=== PATIENT | female | born 1940 | race Caucasian/White ===

== ENCOUNTER 2022-10-12 13:13 | Inpatient (IN) | payer MEDICARE, OTHER ==
[2022-10-12] MEDS ORDERED: Ondansetron ODT 4 MG TAB SL PRN (15:52)
[2022-10-12] MEDS ORDERED: Bisacodyl 5 MG TAB PO PRN (15:52)
[2022-10-12] MEDS: traMADol HCl 50 MG TAB PO PRN ×2 (17:55→23:52)
[2022-10-12] MEDS: Aspirin Chewable 81 MG TAB PO SCH (21:04)
[2022-10-12] MEDS: Vit A,C & E/Lutein/Minerals Tablet PO SCH (21:04)
[2022-10-12] MEDS: Ferrous Gluconate 324 MG TAB PO SCH (21:04)
[2022-10-12] MEDS: Atorvastatin Calcium 40 MG TAB PO SCH (21:05)
[2022-10-13 05:41] LABS: #Basophils 0.1 thou/uL (0.0-0.2); #Eosinphils 0.1 thou/uL (0.0-0.7); #Lymphocytes 1.7 thou/uL (1.20-3.40); #Monocytes 0.7 thou/uL (0.11-0.59); #Neutrophils 5.4 thou/uL (1.40-6.50); %Basophils 0.8 % (0.0-1.0); %Eosinophils 0.9 % (0.0-10.0); %Monocytes 8.7 % (0.0-10.0); %Neutrophils 68.6 % (42.0-75.0); Hemoglobin 11.4 g/dL (12.0-16.0); Mean Corpuscular HGB CONC 31.9 g/dL (32.0-36.0); Mean Corpuscular Hemoglobin 28.1 pg (27.0-31.0); Mean Corpuscular Volume 87.9 fl (78.0-98.0); Mean Platelet Volume 10.7 fL (7.4-10.4); Platelet Count 141 10x3/uL (130-400); RBC Distribution Width 13.2 % (11.5-14.5); Red Blood Cell (RBC) Count 4.05 mill/uL (4.20-5.40); White Blood Cell (WBC) Count 7.9 10x3/uL (4.8-10.8)
[2022-10-13 06:01] LABS: ALT (SGPT) 12 U/L (8-55); AST (SGOT) 18 U/L (5-34); Albumin 3.3 g/dL (3.4-4.8); Alkaline Phosphatase 98 U/L (40-110); Anion Gap 14 mmol/L (10-20); BUN (Urea Nitrogen) 11 mg/dL (9.8-20.1); Bilirubin, Total 0.5 mg/dL (0.2-1.2); Calc. Creatinine Clearance 99 mL/min (70-130); Calcium 8.9 mg/dL (7.8-10.44); Carbon Dioxide 24 mmol/L (23-31); Chloride 107 mmol/L (98-107); Estimated GFR 85; Globulin 2.3 g/dL (2.4-3.5); Glucose 108 mg/dL (83-110); Potassium 3.6 mmol/L (3.5-5.1); Protein, Total 5.6 g/dL (5.8-8.1); Sodium 141 mmol/L (136-145)
[2022-10-13] MEDS: Aspirin Chewable 81 MG TAB PO SCH ×2 (08:51→20:05)
[2022-10-13] MEDS: Multivitamin W/ Minerals 1 TAB PO SCH (08:51)
[2022-10-13] MEDS: Ferrous Gluconate 324 MG TAB PO SCH ×2 (08:51→20:05)
[2022-10-13] MEDS: Lisinopril 10 MG TAB PO SCH (08:51)
[2022-10-13] MEDS: Vit A,C & E/Lutein/Minerals Tablet PO SCH ×2 (08:52→20:05)
[2022-10-13] MEDS: Hydrochlorothiazide 25 MG TAB PO SCH (08:52)
[2022-10-13] MEDS: traMADol HCl 50 MG TAB PO PRN ×3 (09:03→21:18)
[2022-10-13] MEDS ORDERED: hydrALAZINE 25 MG TAB PO PRN (09:31)
[2022-10-13] MEDS: Atorvastatin Calcium 40 MG TAB PO SCH (20:05)
[2022-10-14] MEDS: traMADol HCl 50 MG TAB PO PRN ×2 (07:31→19:49)
[2022-10-14] MEDS: Acetaminophen 325 MG TAB PO PRN (07:34)
[2022-10-14] MEDS: Multivitamin W/ Minerals 1 TAB PO SCH (07:35)
[2022-10-14] MEDS: Ferrous Gluconate 324 MG TAB PO SCH ×2 (07:35→19:50)
[2022-10-14] MEDS: Aspirin Chewable 81 MG TAB PO SCH ×2 (07:35→19:50)
[2022-10-14] MEDS: Hydrochlorothiazide 25 MG TAB PO SCH (07:35)
[2022-10-14] MEDS: Vit A,C & E/Lutein/Minerals Tablet PO SCH ×2 (07:35→19:50)
[2022-10-14] MEDS: Lisinopril 10 MG TAB PO SCH (07:35)
[2022-10-14] MEDS: Atorvastatin Calcium 40 MG TAB PO SCH (19:50)
[2022-10-15] MEDS: traMADol HCl 50 MG TAB PO PRN ×2 (09:16→18:24)
[2022-10-15] MEDS: Lisinopril 10 MG TAB PO SCH (09:17)
[2022-10-15] MEDS: Vit A,C & E/Lutein/Minerals Tablet PO SCH ×2 (09:17→20:44)
[2022-10-15] MEDS: Ferrous Gluconate 324 MG TAB PO SCH ×2 (09:17→20:44)
[2022-10-15] MEDS: Senokot S 8.6-50 MG TAB PO PRN (09:17)
[2022-10-15] MEDS: Multivitamin W/ Minerals 1 TAB PO SCH (09:17)
[2022-10-15] MEDS: Aspirin Chewable 81 MG TAB PO SCH ×2 (09:18→20:44)
[2022-10-15] MEDS: Hydrochlorothiazide 25 MG TAB PO SCH (09:18)
[2022-10-15] MEDS ORDERED: Lisinopril 10 MG TAB PO SCH (11:30)
[2022-10-15] MEDS: Atorvastatin Calcium 40 MG TAB PO SCH (20:44)
[2022-10-15] MEDS: Ibuprofen 800 MG TAB PO PRN (20:45)
[2022-10-16] MEDS: traMADol HCl 50 MG TAB PO PRN ×4 (00:23→21:15)
[2022-10-16] MEDS: Vit A,C & E/Lutein/Minerals Tablet PO SCH ×2 (09:00→21:15)
[2022-10-16] MEDS: Aspirin Chewable 81 MG TAB PO SCH ×2 (09:00→21:15)
[2022-10-16] MEDS: Ferrous Gluconate 324 MG TAB PO SCH ×2 (09:00→21:15)
[2022-10-16] MEDS: Hydrochlorothiazide 25 MG TAB PO SCH (09:00)
[2022-10-16] MEDS: Multivitamin W/ Minerals 1 TAB PO SCH (09:01)
[2022-10-16] MEDS: Lisinopril 20 MG TAB PO SCH (09:01)
[2022-10-16] MEDS: Ibuprofen 800 MG TAB PO PRN (13:27)
[2022-10-16] MEDS: Atorvastatin Calcium 40 MG TAB PO SCH (21:15)
[2022-10-17] MEDS: traMADol HCl 50 MG TAB PO PRN ×3 (06:22→21:35)
[2022-10-17] MEDS: Aspirin Chewable 81 MG TAB PO SCH ×2 (08:12→21:35)
[2022-10-17] MEDS: Hydrochlorothiazide 25 MG TAB PO SCH (08:13)
[2022-10-17] MEDS: Lisinopril 20 MG TAB PO SCH (08:13)
[2022-10-17] MEDS: Ferrous Gluconate 324 MG TAB PO SCH ×2 (08:13→21:35)
[2022-10-17] MEDS: Multivitamin W/ Minerals 1 TAB PO SCH (08:14)
[2022-10-17] MEDS: Vit A,C & E/Lutein/Minerals Tablet PO SCH ×2 (08:14→21:35)
[2022-10-17] MEDS: Acetaminophen 325 MG TAB PO PRN (11:53)
[2022-10-17] MEDS: Ibuprofen 800 MG TAB PO PRN (17:50)
[2022-10-17] MEDS: Atorvastatin Calcium 40 MG TAB PO SCH (21:35)
[2022-10-18] MEDS: Multivitamin W/ Minerals 1 TAB PO SCH (08:01)
[2022-10-18] MEDS: Vit A,C & E/Lutein/Minerals Tablet PO SCH ×2 (08:01→21:19)
[2022-10-18] MEDS: Ferrous Gluconate 324 MG TAB PO SCH ×2 (08:01→21:19)
[2022-10-18] MEDS: Lisinopril 20 MG TAB PO SCH (08:01)
[2022-10-18] MEDS: Aspirin Chewable 81 MG TAB PO SCH ×2 (08:01→21:18)
[2022-10-18] MEDS: traMADol HCl 50 MG TAB PO PRN ×2 (08:02→15:32)
[2022-10-18] MEDS: Hydrochlorothiazide 25 MG TAB PO SCH (08:03)
[2022-10-18] MEDS: Senokot S 8.6-50 MG TAB PO PRN (09:16)
[2022-10-18] MEDS: Ergocalciferol 1.25 MG(50,000 UNITS) CAP PO SCH (15:32)
[2022-10-18] MEDS ORDERED: Transdermal Patch Removal TOP SCH (21:00)
[2022-10-18] MEDS: Atorvastatin Calcium 40 MG TAB PO SCH (21:18)
[2022-10-18] MEDS: Acetaminophen 325 MG TAB PO PRN (21:18)
[2022-10-19] MEDS: traMADol HCl 50 MG TAB PO PRN ×3 (04:22→23:56)
[2022-10-19 05:27] LABS: #Basophils 0.1 thou/uL (0.0-0.2); #Eosinphils 0.3 thou/uL (0.0-0.7); #Lymphocytes 2.5 thou/uL (1.20-3.40); #Monocytes 0.6 thou/uL (0.11-0.59); #Neutrophils 3.8 thou/uL (1.40-6.50); %Basophils 1.4 % (0.0-1.0); %Lymphocytes 33.8 % (21.0-51.0); %Monocytes 8.5 % (0.0-10.0); %Neutrophils 52.3 % (42.0-75.0); Hemoglobin 12.4 g/dL (12.0-16.0); Mean Corpuscular HGB CONC 32.4 g/dL (32.0-36.0); Mean Corpuscular Hemoglobin 28.1 pg (27.0-31.0); Mean Corpuscular Volume 86.8 fl (78.0-98.0); Mean Platelet Volume 8.1 fL (7.4-10.4); Platelet Count 232 10x3/uL (130-400); RBC Distribution Width 12.9 % (11.5-14.5); White Blood Cell (WBC) Count 7.3 10x3/uL (4.8-10.8)
[2022-10-19 05:46] LABS: Anion Gap 16 mmol/L (10-20); BUN (Urea Nitrogen) 15 mg/dL (9.8-20.1); Calc. Creatinine Clearance 86 mL/min (70-130); Calcium 9.2 mg/dL (7.8-10.44); Carbon Dioxide 29 mmol/L (23-31); Chloride 101 mmol/L (98-107); Estimated GFR 72; Glucose 104 mg/dL (83-110); Potassium 4.2 mmol/L (3.5-5.1); Sodium 142 mmol/L (136-145)
[2022-10-19] MEDS ORDERED: Lidocaine 4% Patch TD SCH (08:00)
[2022-10-19] MEDS: Vit A,C & E/Lutein/Minerals Tablet PO SCH ×2 (08:03→21:09)
[2022-10-19] MEDS: Ibuprofen 800 MG TAB PO PRN ×2 (08:03→21:09)
[2022-10-19] MEDS: Ferrous Gluconate 324 MG TAB PO SCH ×2 (08:03→21:09)
[2022-10-19] MEDS: Aspirin Chewable 81 MG TAB PO SCH ×2 (08:03→21:09)
[2022-10-19] MEDS: Lisinopril 20 MG TAB PO SCH (08:03)
[2022-10-19] MEDS: Multivitamin W/ Minerals 1 TAB PO SCH (08:03)
[2022-10-19] MEDS: Hydrochlorothiazide 25 MG TAB PO SCH (08:06)
[2022-10-19] MEDS: Lidocaine 4% Patch TD SCH (08:06)
[2022-10-19] MEDS ORDERED: Lidocaine 5% Patch TD SCH (09:00)
[2022-10-19] MEDS: Transdermal Patch Removal TOP SCH (21:01)
[2022-10-19] MEDS: Atorvastatin Calcium 40 MG TAB PO SCH (21:09)
[2022-10-20] MEDS: Aspirin Chewable 81 MG TAB PO SCH ×2 (08:52→21:27)
[2022-10-20] MEDS: Ferrous Gluconate 324 MG TAB PO SCH ×2 (08:53→21:28)
[2022-10-20] MEDS: Multivitamin W/ Minerals 1 TAB PO SCH (08:53)
[2022-10-20] MEDS: Vit A,C & E/Lutein/Minerals Tablet PO SCH ×2 (08:53→21:28)
[2022-10-20] MEDS: Lisinopril 20 MG TAB PO SCH (08:54)
[2022-10-20] MEDS: Hydrochlorothiazide 25 MG TAB PO SCH (08:55)
[2022-10-20] MEDS: Lidocaine 4% Patch TD SCH (08:56)
[2022-10-20] MEDS: traMADol HCl 50 MG TAB PO PRN (17:49)
[2022-10-20] MEDS: Atorvastatin Calcium 40 MG TAB PO SCH (21:27)
[2022-10-20] MEDS: Ibuprofen 800 MG TAB PO PRN (21:28)
[2022-10-20] MEDS: Transdermal Patch Removal TOP SCH (21:29)
[2022-10-21] MEDS: Multivitamin W/ Minerals 1 TAB PO SCH (07:50)
[2022-10-21] MEDS: Ferrous Gluconate 324 MG TAB PO SCH ×2 (07:50→21:14)
[2022-10-21] MEDS: traMADol HCl 50 MG TAB PO PRN ×2 (07:51→16:35)
[2022-10-21] MEDS: Aspirin Chewable 81 MG TAB PO SCH ×2 (07:52→21:11)
[2022-10-21] MEDS: Lisinopril 20 MG TAB PO SCH (07:52)
[2022-10-21] MEDS: Vit A,C & E/Lutein/Minerals Tablet PO SCH ×2 (07:53→21:11)
[2022-10-21] MEDS: Hydrochlorothiazide 25 MG TAB PO SCH (07:53)
[2022-10-21] MEDS: Lidocaine 4% Patch TD SCH (07:53)
[2022-10-21] MEDS: Acetaminophen 325 MG TAB PO PRN (11:18)
[2022-10-21] MEDS: Ibuprofen 800 MG TAB PO PRN (21:12)
[2022-10-21] MEDS: Atorvastatin Calcium 40 MG TAB PO SCH (21:14)
[2022-10-21] MEDS: Transdermal Patch Removal TOP SCH (21:20)
[2022-10-22] MEDS: traMADol HCl 50 MG TAB PO PRN ×3 (00:17→21:31)
[2022-10-22 06:02] LABS: #Basophils 0.1 thou/uL (0.0-0.2); #Eosinphils 0.4 thou/uL (0.0-0.7); #Lymphocytes 2.8 thou/uL (1.20-3.40); #Monocytes 0.7 thou/uL (0.11-0.59); #Neutrophils 3.6 thou/uL (1.40-6.50); %Basophils 1.5 % (0.0-1.0); %Eosinophils 5.1 % (0.0-10.0); %Lymphocytes 36.8 % (21.0-51.0); %Monocytes 8.6 % (0.0-10.0); Hemoglobin 12.3 g/dL (12.0-16.0); Mean Corpuscular HGB CONC 31.6 g/dL (32.0-36.0); Mean Corpuscular Hemoglobin 27.5 pg (27.0-31.0); Mean Corpuscular Volume 87.2 fl (78.0-98.0); Mean Platelet Volume 8.4 fL (7.4-10.4); Platelet Count 250 10x3/uL (130-400); RBC Distribution Width 13.1 % (11.5-14.5); Red Blood Cell (RBC) Count 4.46 mill/uL (4.20-5.40); White Blood Cell (WBC) Count 7.5 10x3/uL (4.8-10.8)
[2022-10-22 06:21] LABS: Anion Gap 14 mmol/L (10-20); BUN (Urea Nitrogen) 22 mg/dL (9.8-20.1); Calc. Creatinine Clearance 79 mL/min (70-130); Calcium 8.9 mg/dL (7.8-10.44); Carbon Dioxide 25 mmol/L (23-31); Chloride 103 mmol/L (98-107); Estimated GFR 70; Glucose 102 mg/dL (83-110); Potassium 4.2 mmol/L (3.5-5.1); Sodium 138 mmol/L (136-145)
[2022-10-22] MEDS: Vit A,C & E/Lutein/Minerals Tablet PO SCH ×2 (08:04→21:30)
[2022-10-22] MEDS: Ferrous Gluconate 324 MG TAB PO SCH ×2 (08:04→21:30)
[2022-10-22] MEDS: Multivitamin W/ Minerals 1 TAB PO SCH (08:04)
[2022-10-22] MEDS: Aspirin Chewable 81 MG TAB PO SCH ×2 (08:04→21:30)
[2022-10-22] MEDS: Lisinopril 20 MG TAB PO SCH (08:04)
[2022-10-22] MEDS: Hydrochlorothiazide 25 MG TAB PO SCH (08:06)
[2022-10-22] MEDS: Lidocaine 4% Patch TD SCH (08:06)
[2022-10-22] MEDS ORDERED: Ibuprofen 200 MG TAB PO PRN (10:45)
[2022-10-22] MEDS: Transdermal Patch Removal TOP SCH (21:27)
[2022-10-22] MEDS: Atorvastatin Calcium 40 MG TAB PO SCH (21:31)
[2022-10-23] MEDS: traMADol HCl 50 MG TAB PO PRN ×3 (05:55→18:16)
[2022-10-23] MEDS: Vit A,C & E/Lutein/Minerals Tablet PO SCH ×2 (07:46→21:02)
[2022-10-23] MEDS: Lidocaine 4% Patch TD SCH (07:46)
[2022-10-23] MEDS: Multivitamin W/ Minerals 1 TAB PO SCH (07:47)
[2022-10-23] MEDS: Ferrous Gluconate 324 MG TAB PO SCH ×2 (07:47→21:02)
[2022-10-23] MEDS: Aspirin Chewable 81 MG TAB PO SCH ×2 (07:47→21:02)
[2022-10-23] MEDS: Acetaminophen 325 MG TAB PO PRN (07:47)
[2022-10-23] MEDS: Lisinopril 20 MG TAB PO SCH (07:48)
[2022-10-23] MEDS: Hydrochlorothiazide 25 MG TAB PO SCH (07:49)
[2022-10-23] MEDS: Transdermal Patch Removal TOP SCH (21:00)
[2022-10-23] MEDS: Atorvastatin Calcium 40 MG TAB PO SCH (21:02)
[2022-10-23] MEDS: Ibuprofen 200 MG TAB PO PRN (21:03)
[2022-10-24] MEDS: Ferrous Gluconate 324 MG TAB PO SCH ×2 (09:06→21:14)
[2022-10-24] MEDS: Lidocaine 4% Patch TD SCH (09:07)
[2022-10-24] MEDS: Aspirin Chewable 81 MG TAB PO SCH ×2 (09:07→21:15)
[2022-10-24] MEDS: Lisinopril 20 MG TAB PO SCH (09:07)
[2022-10-24] MEDS: Hydrochlorothiazide 25 MG TAB PO SCH (09:07)
[2022-10-24] MEDS: Vit A,C & E/Lutein/Minerals Tablet PO SCH ×2 (09:08→21:15)
[2022-10-24] MEDS: Multivitamin W/ Minerals 1 TAB PO SCH (09:08)
[2022-10-24] MEDS: traMADol HCl 50 MG TAB PO PRN ×2 (09:14→18:14)
[2022-10-24] MEDS: Atorvastatin Calcium 40 MG TAB PO SCH (21:14)
[2022-10-24] MEDS: Transdermal Patch Removal TOP SCH (21:14)
[2022-10-24] MEDS: Ibuprofen 200 MG TAB PO PRN (21:20)
[2022-10-25] MEDS: Lidocaine 4% Patch TD SCH (07:59)
[2022-10-25] MEDS: Ferrous Gluconate 324 MG TAB PO SCH ×2 (08:05→20:17)
[2022-10-25] MEDS: Multivitamin W/ Minerals 1 TAB PO SCH (08:05)
[2022-10-25] MEDS: traMADol HCl 50 MG TAB PO PRN ×2 (08:06→20:15)
[2022-10-25] MEDS: Aspirin Chewable 81 MG TAB PO SCH ×2 (08:08→20:15)
[2022-10-25] MEDS: Lisinopril 20 MG TAB PO SCH (08:08)
[2022-10-25] MEDS: Hydrochlorothiazide 25 MG TAB PO SCH (08:09)
[2022-10-25] MEDS: Vit A,C & E/Lutein/Minerals Tablet PO SCH ×2 (08:10→20:15)
[2022-10-25] MEDS: Ergocalciferol 1.25 MG(50,000 UNITS) CAP PO SCH (16:40)
[2022-10-25] MEDS: Acetaminophen 325 MG TAB PO PRN (16:50)
[2022-10-25] MEDS: Atorvastatin Calcium 40 MG TAB PO SCH (20:15)
[2022-10-25] MEDS: Transdermal Patch Removal TOP SCH (20:17)
[2022-10-26] MEDS: Ibuprofen 200 MG TAB PO PRN ×2 (05:25→22:13)
[2022-10-26] MEDS: Lidocaine 4% Patch TD SCH (08:10)
[2022-10-26] MEDS: Multivitamin W/ Minerals 1 TAB PO SCH (08:11)
[2022-10-26] MEDS: Aspirin Chewable 81 MG TAB PO SCH ×2 (08:11→20:21)
[2022-10-26] MEDS: Hydrochlorothiazide 25 MG TAB PO SCH (08:11)
[2022-10-26] MEDS: Vit A,C & E/Lutein/Minerals Tablet PO SCH ×2 (08:12→20:21)
[2022-10-26] MEDS: Lisinopril 20 MG TAB PO SCH (08:13)
[2022-10-26] MEDS: Ferrous Gluconate 324 MG TAB PO SCH ×2 (08:13→20:21)
[2022-10-26] MEDS: Acetaminophen 325 MG TAB PO PRN (08:19)
[2022-10-26] MEDS: traMADol HCl 50 MG TAB PO PRN (20:21)
[2022-10-26] MEDS: Atorvastatin Calcium 40 MG TAB PO SCH (20:21)
[2022-10-26] MEDS: Transdermal Patch Removal TOP SCH (20:30)
[2022-10-27 05:23] LABS: #Basophils 0.1 thou/uL (0.0-0.2); #Eosinphils 0.3 thou/uL (0.0-0.7); #Monocytes 0.6 thou/uL (0.11-0.59); #Neutrophils 3.1 thou/uL (1.40-6.50); %Basophils 1.8 % (0.0-1.0); %Eosinophils 4.6 % (0.0-10.0); %Lymphocytes 42.5 % (21.0-51.0); %Monocytes 8.6 % (0.0-10.0); %Neutrophils 42.7 % (42.0-75.0); Hemoglobin 12.6 g/dL (12.0-16.0); Mean Corpuscular HGB CONC 32.5 g/dL (32.0-36.0); Mean Corpuscular Hemoglobin 27.6 pg (27.0-31.0); Mean Corpuscular Volume 85.1 fl (78.0-98.0); Mean Platelet Volume 9.7 fL (7.4-10.4); Platelet Count 243 10x3/uL (130-400); Red Blood Cell (RBC) Count 4.56 mill/uL (4.20-5.40); White Blood Cell (WBC) Count 7.2 10x3/uL (4.8-10.8)
[2022-10-27 05:39] LABS: Anion Gap 13 mmol/L (10-20); BUN (Urea Nitrogen) 25 mg/dL (9.8-20.1); Calc. Creatinine Clearance 77 mL/min (70-130); Calcium 9.1 mg/dL (7.8-10.44); Carbon Dioxide 27 mmol/L (23-31); Chloride 104 mmol/L (98-107); Estimated GFR 68; Glucose 104 mg/dL (83-110); Potassium 4.1 mmol/L (3.5-5.1); Sodium 140 mmol/L (136-145)
[2022-10-27 05:51] VITALS: BMI 35.7
[2022-10-27] MEDS: Lidocaine 4% Patch TD SCH (09:08)
[2022-10-27] MEDS: Hydrochlorothiazide 25 MG TAB PO SCH (09:08)
[2022-10-27] MEDS: Aspirin Chewable 81 MG TAB PO SCH ×2 (09:08→20:28)
[2022-10-27] MEDS: Multivitamin W/ Minerals 1 TAB PO SCH (09:09)
[2022-10-27] MEDS: Ferrous Gluconate 324 MG TAB PO SCH ×2 (09:10→20:28)
[2022-10-27] MEDS: Lisinopril 20 MG TAB PO SCH (09:10)
[2022-10-27] MEDS: Vit A,C & E/Lutein/Minerals Tablet PO SCH ×2 (09:11→20:28)
[2022-10-27] MEDS: Ibuprofen 200 MG TAB PO PRN (20:27)
[2022-10-27] MEDS: Transdermal Patch Removal TOP SCH (20:28)
[2022-10-27] MEDS: Atorvastatin Calcium 40 MG TAB PO SCH (20:28)
[2022-10-28] MEDS: Vit A,C & E/Lutein/Minerals Tablet PO SCH ×2 (08:09→20:44)
[2022-10-28] MEDS: Ferrous Gluconate 324 MG TAB PO SCH ×2 (08:09→20:44)
[2022-10-28] MEDS: Multivitamin W/ Minerals 1 TAB PO SCH (08:09)
[2022-10-28] MEDS: Lidocaine 4% Patch TD SCH (08:09)
[2022-10-28] MEDS: Hydrochlorothiazide 25 MG TAB PO SCH (08:10)
[2022-10-28] MEDS: Lisinopril 20 MG TAB PO SCH (08:10)
[2022-10-28] MEDS: Aspirin Chewable 81 MG TAB PO SCH ×2 (08:10→20:44)
[2022-10-28] MEDS: traMADol HCl 50 MG TAB PO PRN (08:19)
[2022-10-28] MEDS: Ibuprofen 200 MG TAB PO PRN ×2 (10:10→18:32)
[2022-10-28] MEDS: Transdermal Patch Removal TOP SCH (20:44)
[2022-10-28] MEDS: Atorvastatin Calcium 40 MG TAB PO SCH (20:45)
[2022-10-28] MEDS: Acetaminophen 325 MG TAB PO PRN (20:45)
[2022-10-29] MEDS: Lidocaine 4% Patch TD SCH (08:09)
[2022-10-29] MEDS: Aspirin Chewable 81 MG TAB PO SCH ×2 (08:10→20:41)
[2022-10-29] MEDS: Ferrous Gluconate 324 MG TAB PO SCH ×2 (08:10→20:41)
[2022-10-29] MEDS: Ibuprofen 200 MG TAB PO PRN ×3 (08:10→20:43)
[2022-10-29] MEDS: Vit A,C & E/Lutein/Minerals Tablet PO SCH ×2 (08:12→20:41)
[2022-10-29] MEDS: Multivitamin W/ Minerals 1 TAB PO SCH (08:12)
[2022-10-29] MEDS: Hydrochlorothiazide 25 MG TAB PO SCH (08:13)
[2022-10-29] MEDS: Lisinopril 20 MG TAB PO SCH (08:13)
[2022-10-29] MEDS: Transdermal Patch Removal TOP SCH (20:41)
[2022-10-29] MEDS: Atorvastatin Calcium 40 MG TAB PO SCH (20:41)
[2022-10-30] MEDS: Lidocaine 4% Patch TD SCH (07:52)
[2022-10-30] MEDS: Lisinopril 20 MG TAB PO SCH (07:53)
[2022-10-30] MEDS: Vit A,C & E/Lutein/Minerals Tablet PO SCH ×2 (07:54→20:50)
[2022-10-30] MEDS: Ferrous Gluconate 324 MG TAB PO SCH ×2 (07:54→20:50)
[2022-10-30] MEDS: Aspirin Chewable 81 MG TAB PO SCH ×2 (07:55→20:50)
[2022-10-30] MEDS: Multivitamin W/ Minerals 1 TAB PO SCH (07:55)
[2022-10-30] MEDS: Hydrochlorothiazide 25 MG TAB PO SCH (07:56)
[2022-10-30] MEDS: Ibuprofen 200 MG TAB PO PRN ×3 (07:59→20:54)
[2022-10-30] MEDS ORDERED: Acetaminophen 325 MG TAB PO PRN (13:56)
[2022-10-30] MEDS: Atorvastatin Calcium 40 MG TAB PO SCH (20:50)
[2022-10-30] MEDS: Transdermal Patch Removal TOP SCH (20:51)
[2022-10-31] MEDS: Hydrochlorothiazide 25 MG TAB PO SCH (09:15)
[2022-10-31] MEDS: Aspirin Chewable 81 MG TAB PO SCH ×2 (09:15→21:00)
[2022-10-31] MEDS: Lisinopril 20 MG TAB PO SCH (09:15)
[2022-10-31] MEDS: Ferrous Gluconate 324 MG TAB PO SCH ×2 (09:15→21:00)
[2022-10-31] MEDS: Multivitamin W/ Minerals 1 TAB PO SCH (09:15)
[2022-10-31] MEDS: Vit A,C & E/Lutein/Minerals Tablet PO SCH ×3 (09:15→21:02)
[2022-10-31] MEDS: Lidocaine 4% Patch TD SCH (09:16)
[2022-10-31] MEDS: Ibuprofen 200 MG TAB PO PRN (09:18)
[2022-10-31] MEDS: Transdermal Patch Removal TOP SCH (21:00)
[2022-10-31] MEDS: Atorvastatin Calcium 40 MG TAB PO SCH (21:00)
[2022-11-01] MEDS: Lidocaine 4% Patch TD SCH (09:06)
[2022-11-01] MEDS: Ferrous Gluconate 324 MG TAB PO SCH (09:07)
[2022-11-01] MEDS: Lisinopril 20 MG TAB PO SCH (09:07)
[2022-11-01] MEDS: Aspirin Chewable 81 MG TAB PO SCH (09:07)
[2022-11-01] MEDS: Vit A,C & E/Lutein/Minerals Tablet PO SCH (09:07)
[2022-11-01] MEDS: Multivitamin W/ Minerals 1 TAB PO SCH (09:07)
[2022-11-01] MEDS: Hydrochlorothiazide 25 MG TAB PO SCH (09:08)
[2022-11-01 09:12] VITALS: BP 113/73
[2022-11-01 10:16] VITALS: TEMP 98.2
[2022-11-01] MEDS: Ibuprofen 200 MG TAB PO PRN (12:19)
== END 2022-11-01 12:55 | disposition home health service (06) | DRG 561 ==
LOC: NAV ACUTE 16:31
PROVIDERS: ADMIT Family Medicine; ATTEND Family Medicine
DX: Z47.1 Aftercare following joint replacement surgery (principal); R53.81 Other malaise; I10 Essential (primary) hypertension; E78.5 Hyperlipidemia, unspecified; H35.30 Unspecified macular degeneration; M19.90 Unspecified osteoarthritis, unspecified site; E55.9 Vitamin D deficiency, unspecified; Z88.0 Allergy status to penicillin; Z90.89 Acquired absence of other organs; Z82.49 Family history of ischemic heart disease and other diseases of the circulatory system; Z79.82 Long term (current) use of aspirin; Z79.899 Other long term (current) drug therapy; K59.00 Constipation, unspecified
CPT/HCPCS: 36415; 80048; 80053; 85025